=== PATIENT | male | born 1960 | race Caucasian/White ===

== ENCOUNTER 2017-05-05 13:14 | Day surgery (SDC) | payer OTHER ==
[2017-05-05] MEDS ORDERED: fentaNYL 100 MCG/2 ML INJ IVP ONE (13:21)
[2017-05-05] MEDS ORDERED: NS 500 ML IV ONE (13:21)
[2017-05-05] MEDS ORDERED: BENZOCAINE UNIT DOSE SPRAY HURRICAINE MM ONE (13:21)
[2017-05-05] MEDS ORDERED: ATROPINE SULFATE 1 MG/10 ML SYR IVP ONE (13:21)
[2017-05-05] MEDS ORDERED: MIDAZOLAM 2 MG/2 ML VIAL IVP ONE (13:21)
--- NOTE | 2017-05-05 13:55 | CPEKG ---
Heart Rate: 96 RR Interval: 625 QRSD Interval: 108 QT Interval: 416 QTC Interval: 526 QRS [place]: 60 T Wave [place]: 56 EKG Severity - ABNORMAL ECG - EKG Impression: ATRIAL FLUTTER, A-RATE 242 EKG Impression: PROLONGED QT INTERVAL Electronically Signed By: Tita Orr 05-May-2017 15:26:26
[2017-05-05 14:29] LABS: INR 1.6 (0.83-1.16); PROTIME(PATIENT) 19.2 SEC (12.0-15.0)
[2017-05-05 14:30] LABS: APTT 53.4 SEC (23.0-38.0)
[2017-05-05 14:43] LABS: ANION GAP 12 mEq/L (8-16); CALCIUM 9.2 mg/dL (8.5-10.4); CARBON DIOXIDE 26 mEq/l (22-31); CHLORIDE 103 mEq/L (97-110); CREATININE 1.2 mg/dL (0.7-1.3); GLOMERULAR FILTRATION RATE > 60; GLUCOSE 86 mg/dL (70-100); MAGNESIUM 2.2 mg/dL (1.6-2.3); POTASSIUM 4.6 mEq/L (3.5-5.2); SODIUM 141 mEq/L (134-144)
[2017-05-05] MEDS ORDERED: PROPOFOL/EMULSION 500 MG/50 ML BOTTLE IV ONE (14:45)
[2017-05-05] MEDS ORDERED: SUCCINYLCHOLINE CHLORIDE*ANESTHESIA ONLY*200 MG/10 ML SYR IVP ONE (14:46)
[2017-05-05] MEDS ORDERED: LIDOCAINE 1% 5 ML SDV ONE (14:46)
--- NOTE | 2017-05-05 15:11 | CPEKG ---
Heart Rate: 70 RR Interval: 857 P-R Interval: 200 QRSD Interval: 112 QT Interval: 416 QTC Interval: 449 P [place]: 35 QRS [place]: 21 T Wave [place]: 38 EKG Severity - ABNORMAL ECG - EKG Impression: SINUS RHYTHM EKG Impression: NONSPECIFIC INTRAVENTRICULAR CONDUCTION DELAY Electronically Signed By: Tita Orr 05-May-2017 15:26:41
--- NOTE | 2017-05-05 15:20 | PDHPUP ---
History & Physical Update H&P update statement: This history and physical update is based on an assessment of the patient which was completed after admission or registration (within 24 hours), but prior to the surgery/procedure. H&P update: H&P reviewed & patient examined, no change in patient's condition since H&P completed
--- NOTE | 2017-05-05 15:20 | PDPROPOC ---
Sedation Plan of Care Sedation Plan of Care: vital signs stable, mental status noted, patient educated of risks, benefits, alternatives, patient can tolerate sedation ASA Classification: ASA 2 Planned drugs: fentanyl, midazolam Mallampati Score: Class 1 Mallampati Reference Image: Patient passed 3-3-2 rule?: Yes
--- NOTE | 2017-05-05 15:22 | PDTEE1 ---
SHELBY Cardioversion Procedure Procedure: electrical cardioversion, transesophageal echo Indications: other (atrial flutter) Procedural Details: Pads were placed in anterior-posterior position. SHELBY probe was advanced and standard images obtained. There is no evidence of left atrial or left atrial appendage thrombus. Synchronized cardioversion attempt #1: 200J Results: normal sinus rhythm Conclusions: successful SHELBY cardioversion
== END 2017-05-05 16:35 | disposition home or self-care (01) ==
LOC: FCATH 13:14
PROVIDERS: ATTEND Internal Medicine Cardiovascular Disease
PROC: 5A2204Z Restoration of Cardiac Rhythm, Single (ICD-10-PCS; principal; 2017-05-05)
PROC: B245ZZ4 Ultrasonography of Left Heart, Transesophageal (ICD-10-PCS; principal; 2017-05-05)
DX: I48.92 Unspecified atrial flutter (principal); I48.0 Paroxysmal atrial fibrillation; I47.1 Supraventricular tachycardia; I10 Essential (primary) hypertension; G47.33 Obstructive sleep apnea (adult) (pediatric); Z98.890 Other specified postprocedural states; Z87.74 Personal history of (corrected) congenital malformations of heart and circulatory system; Z82.49 Family history of ischemic heart disease and other diseases of the circulatory system; Z99.89 Dependence on other enabling machines and devices; Z88.0 Allergy status to penicillin
CPT/HCPCS: J0330; J2704

== ENCOUNTER 2018-05-14 07:08 | Day surgery (SDC) | payer OTHER ==
[~2018-05-14 07:08] MED LIST: ATROPINE SULFATE 1 MG/10 ML SYR IVP ONE; MIDAZOLAM 2 MG/2 ML VIAL IVP ONE; NS 500 ML IV ONE; fentaNYL 100 MCG/2 ML INJ IVP ONE
[2018-05-14 07:53] LABS: INR 1.44 (0.83-1.16); PROTIME(PATIENT) 17.7 SEC (12.0-15.0)
--- NOTE | 2018-05-14 08:14 | PDANEPAE ---
ANE Past Medical History - Cardiovascular History Hx Arrhythmias: Yes Hx Palpitations: Yes - Pulmonary History Hx COPD: No Hx Asthma/Reactive Airway Disease: Yes Hx Recent Upper Respiratory Infection: No Hx Oxygen in Use at Home: No Hx Sleep Apnea: Yes - Neurologic History Hx Cerebrovascular Accident: No Hx Seizures: No Hx Dementia: No - Endocrine History Hx Diabetes: No Hypothyroid: No Hyperthyroid: No Obesity: moderate - Renal History Hx Renal Disorders: No - Liver History Hx Hepatic Disorders: No - Neurological & Psychiatric Hx Hx Neurological and Psychiatric Disorders: No - Cancer History Hx Cancer: No - Congenital Disorder History Hx Congenital Disorders: Yes Congenital History Comment: s/p ASD repair - GI History GERD: no - Surgical History Prior Surgeries: ASD repair, two cardiac ablations ANE Review of Systems Review of Systems: - Exercise capacity METS (RN): 4 METS ANE Patient History - Allergies Allergies/Adverse Reactions: Penicillins Allergy (Verified 12/16/13 10:27) - Home Medications Home Medications: Diltiazem HCl [Diltiazem ER] 120 mg PO TID 05/12/14 [Last Taken 05/14/18 06:00] Dronedarone HCl [Multaq 400 mg (RX)] 400 mg PO BIDMEAL 05/12/14 [Last Taken 06:00] Albuterol 2 IH Q4 PRN 05/05/17 [Last Taken 04/28/17 08:00] Pradaxa 150 MG (*) 150 mg PO BID 05/05/17 [Last Taken 05/14/18 06:00] - Anes Hx Anes Hx: no prior problems - Smoking Hx Smoking Status: Never smoked - Alcohol Use Alcohol Use: Other (1 drink/day) - Family Anes Hx Family Anes Hx: none ANE Labs/Vital Signs - Labs Result Diagrams: 05/14/18 07:35 - Vital Signs Height: 182.88 cm Weight: 113.398 kg ANE Physical Exam - Airway Neck exam: FROM Mallampati Score: Class 2 Mouth exam: normal dental/mouth exam - Pulmonary Pulmonary: clear to auscultation - Cardiovascular Cardiovascular: regular rate and rhythym - ASA Status ASA Status: III ANE Anesthesia Plan Anesthesia Plan: GA with mask
[2018-05-14] MEDS ORDERED: PROPOFOL 200 MG/20 ML VIAL ONE (08:16)
--- NOTE | 2018-05-14 08:43 | PDGENHP ---
History & Physical Chief Complaint: Left AT vs. Atrial Flutter History of Present Illness: Increasing frequency of symptomatic AT. History of 2 prior ablations at outside institutions. He is anticoagulated with Pradaxa. Relevant Physical Exam: General: A&Ox4, no apparent distress. Respiratory: CTA. Cardiac: Irregular rate and rhythm. S1, S2 Cardiorespiratory Assessment: Proceed with cardioversion as planned for today
--- NOTE | 2018-05-14 08:47 | PDCARD ---
Cardioversion Procedure Procedure: electrical cardioversion Indications: other (atrial tachycardia) Anticoagulation: other (pradaxa) Procedural Details: Pads were placed in anterior-posterior position. Synchronized cardioversion attempt #1: 100J Results: normal sinus rhythm Conclusions: successful cardioversion Patient Problems: Problems Problem Status Onset Atrial tachycardia Acute
--- NOTE | 2018-05-14 09:26 | POSTANESTH ---
Post Anesthetic Evaluation Cardiovascular Status: Similar to Pre-Op Cond Respiratory Status: Similar to Pre-op Cond. Level of Consciousness/Mental Status: Can Participate in Eval Pain Control: Adequate, Prn Tx Ordered Nausea/Vomiting Control: Adequate, Prn Tx Ordered Complications Possibly Related to Anesthesia: None Noted
--- NOTE | 2018-05-17 09:31 | CPEKG ---
Test Reason : OPEN Blood Pressure : / mmHG Vent. Rate : 064 BPM Atrial Rate : 259 BPM P-R Int : 162 ms QRS Dur : 128 ms QT Int : 421 ms P-R-T Axes : 074 056 046 degrees QTc Int : 435 ms Atrial flutter with variable conduction Supraventricular bigeminy Nonspecific intraventricular conduction delay Confirmed by Rob Rincon ([id number]) on 05/17/2018 9:30:55 AM Referred By: Confirmed By:Rob Rincon
--- NOTE | 2018-05-17 09:32 | CPEKG ---
Test Reason : OPEN Blood Pressure : / mmHG Vent. Rate : 059 BPM Atrial Rate : 057 BPM P-R Int : 199 ms QRS Dur : 117 ms QT Int : 446 ms P-R-T Axes : 067 033 037 degrees QTc Int : 442 ms Sinus rhythm Nonspecific intraventricular conduction delay Sinus rhythm has replaced atrial flutter noted on prior ECG Confirmed by Rob Rincon ([id number] on 05/17/2018 9:31:39 AM Referred By: Confirmed By:Rob Rincon
== END 2018-05-14 10:04 | disposition home or self-care (01) ==
LOC: FCATH 07:08
PROVIDERS: ATTEND Internal Medicine Cardiovascular Disease
PROC: 5A2204Z Restoration of Cardiac Rhythm, Single (ICD-10-PCS; principal; 2018-05-14)
DX: I47.1 Supraventricular tachycardia (principal); G47.33 Obstructive sleep apnea (adult) (pediatric); Z79.01 Long term (current) use of anticoagulants
CPT/HCPCS: J2704